=== PATIENT | female | born 1970 | race Caucasian/White ===

== ENCOUNTER 2016-11-16 07:44 | Day surgery (SDC) | payer BC ==
[~2016-11-16] VITALS: Ht 160 cm; Wt 92.0 kg
[~2016-11-16 07:44] MED LIST: DEPO-PROVER150 MG/ML IM
[2016-11-16] MEDS ORDERED: VITAMIN D5000 UNI1 PO (08:42)
[2016-11-16] MEDS ORDERED: CLARITIN,ALAVAR10 MG PO (08:43)
[2016-11-16] MEDS ORDERED: ASCORBIC ACID500 M3 PO (08:43)
[2016-11-16 08:47] VITALS: BP 124/79
[2016-11-16] MEDS ORDERED: IBUPROFEN800 MG PO (11:54)
[2016-11-16] MEDS ORDERED: HYDROCODON-ACE1 EAC7 PO (11:54)
[2016-11-16 13:49] VITALS: BP 135/83
[2016-11-16 14:50] VITALS: BP 111/67
[2016-11-16 15:49] VITALS: BP 111/87
== END 2016-11-16 16:05 | disposition home or self-care (01) ==
LOC: SDC 07:44
DX: N92.0 Excessive and frequent menstruation with regular cycle (principal); N94.6 Dysmenorrhea, unspecified; N80.0 Endometriosis of uterus; N72 Inflammatory disease of cervix uteri; D25.1 Intramural leiomyoma of uterus
CPT/HCPCS: 88307; J0131; J0330; J0690; J1100; J1170; J1885; J2250; J2405; J2765; J3010